=== PATIENT | female | born 1935 | race Caucasian/White ===

== ENCOUNTER → 2016-11-12 | Outpatient (CLI) | payer MEDICARE, BC ==
--- NOTE | ~2016-11-12 | PUL ---
[facility] AGE[facility] 81 Y [address] ROOM: [place] [id number] LOCATION: [facility] ADMIT DATE: 11/12/2016 Pulmonary DISCHARGE DATE: FAMILY PHYSICIAN: Geoff Garnica MD ATTENDING PHYSICIAN: RAEANN ALTMAN NAME OF PROCEDURE: Sleep Study PROCEDURE DATE: 11/12/16 TECH: TATY Interiano TEST #: [facility] [id number] TECHNICAL PARAMETERS: The patient was studied using International 10/20 measuring system. While the patient was studied, there was continuous monitoring of EEG (8 leads), EOG (2 leads), EKG (3 leads), submental EMG (3 leads), tibial (4 leads), respiratory inductive plethysmography (RIP) for thoracic and abdominal effort, oral and nasal airflow with a thermocouple and pressure transducer, and oximetry. The instrumentation and control technician also performed visual and auditory observations noting things like body position, patient's status, breath sounds, artifact, snoring level and patient comments. Continuous sound was monitored using a 2-way speaker system and video monitoring was performed using an infrared camera. Review of the entire study was performed epoch by epoch utilizing a single epoch and multiple epoch capability sleep system. MEDICAL HISTORY: The patient is an 81-year-old woman with daytime sleepiness and snoring. SLEEP STAGE SUMMARY: The patient was studied for 443 minutes of which she slept 256 minutes. She fell asleep in 14 minutes and slept for 57% of the night. Sleep architecture revealed a decline in slow wave and REM sleep. RESPIRATORY SUMMARY: Oxygen saturations ranged from 63%-94% and were below 88% for 173 minutes. Prior to initiating CPAP there were 5 obstructive apneas and 67 hypopneas for an apnea/hypopnea index severely elevated at 35 events per hour. CPAP was initiated and titrated to 10 cm with good control of the respiratory events. EKG SUMMARY: Average heart rate during sleep 57 beats per minute. Most of the night was spent in sinus bradycardia. LIMB MOVEMENT SUMMARY: No clinically relevant periodic limb movements were noted. PATIENT'S NAME: BHARTI FELIZ [facility] AGE: 81 Y [address] ROOM: [place] [address] LOCATION: [facility] ADMIT DATE: 11/12/2016 Pulmonary DISCHARGE DATE: FAMILY PHYSICIAN: Geoff Garnica MD ATTENDING PHYSICIAN: RAEANN ALTMAN SUMMARY: Obstructive sleep apnea responsive to CPAP at 10 cm. PLAN: Suggest CPAP at 10 cm. PEACE KIMBLE MD [facility]/ /[id number] dtt: 11/16/16 0721 , Peace Kimble. dtd: 11/13/16 1524
== END | disposition disaster alternative care site (69) ==
LOC: GSLP 09-19 14:34
DX: G47.33 Obstructive sleep apnea (adult) (pediatric) (principal)